=== PATIENT | female | born 1995 | race Two or more races ===

== ENCOUNTER 2019-08-08 23:27 | Emergency (ER) | payer MEDICAID ==
[~2019-08-08] VITALS: Ht 152.4 cm; Wt 104.3 kg
--- NOTE | 2019-08-08 23:46 | NUR ---
BIBSELF FROM HOME WITH FAMILY. TO ER BED 9. AAOX4. NO RESP DISTRESS NOTED. BREATHING EVEN AND UNLABORED. AMBULATORY. C/O L CHECT PAIN RADIATING TO L ARM AND L JAW. PT ALSO COMPLAINTS OF L SIDED HEADACHE. PT IS REPORT @ 5/10 SHARP AND PRESSURE. REPORTS TAKING 2 TYLENOL WHICH HELPED WITH THE PAIN AND IS NOT BAD WHEN IT STARTED @ 7PM. PT ALSO REPORTS THAT SHE FELT SOB AND NUMBNESS ON THE LEFT FACE WHICH IS NOT PRESENT UPON ASSESSMENT. EKG DONE BY EMT AT BEDSIDE. AWAITING MD FOR EVAL.
--- NOTE | 2019-08-08 23:59 | NUR ---
AT BEDSIDE FOR EVAL
[2019-08-09] MEDS ORDERED: NITROGLYCERIN PACKET 1 GM PACKET ONE (00:22)
[2019-08-09] MEDS ORDERED: ASPIRIN 81 MG TAB.CHEW ONE (00:23)
[2019-08-09 00:25] LABS: BASOPHILS # (AUTO) 0.1 /CMM (0.0-0.2); BASOPHILS % (AUTO) 0.7 % (0.0-2.0); EOSINOPHILS % (AUTO) 1.3 % (0.0-6.0); HEMATOCRIT 41 % (33-45); HEMOGLOBIN 13.4 g/dL (11.5-14.8); LYMPHOCYTES # (AUTO) 3.5 /CMM (0.8-4.8); LYMPHOCYTES % (AUTO) 26.7 % (20.0-44.0); MEAN CORPUSCULAR HGB CONC 33 g/dl (31.0-36.0); MEAN CORPUSCULAR VOLUME 80 fL (82-100); MONOCYTES # (AUTO) 0.7 /CMM (0.1-1.30); MONOCYTES % (AUTO) 5.6 % (2.0-12.0); NEUTROPHILS # (AUTO) 8.6 /CMM (1.8-8.9); NEUTROPHILS % (AUTO) 65.7 % (43.0-81.0); PLATELET COUNT (AUTO) 401 /CMM (150-450); RED BLOOD CELL COUNT(AUTO) 5.07 MIL/uL (4.0-5.2); WHITE BLOOD COUNT (AUTO) 13.1 K/uL (4.3-11.0)
[2019-08-09] MEDS ORDERED: NITROGLYCERIN PACKET 1 GM PACKET TD ONE (00:30)
[2019-08-09] MEDS ORDERED: ASPIRIN 81 MG TAB.CHEW PO ONE (00:30)
[2019-08-09 00:32] LABS: CALCIUM, SERUM 9.5 mg/dL (8.5-10.1); CARBON DIOXIDE 31 mmol/L (21-32); CHLORIDE 102 mmol/L (98-107); GLUCOSE 98 mg/dL (74-106); POTASSIUM 4.2 mmol/L (3.5-5.1); SODIUM SERUM 138 mmol/L (136-145); UREA NITROGEN, BLOOD 14 mg/dL (7-18)
[2019-08-09 00:44] LABS: ALANINE AMINOTRANSFERASE 18 U/L (12-78); ALBUMIN 3.5 g/dL (3.4-5.0); ALKALINE PHOSPHATASE 125 U/L (46-116); ASPARTATE AMINOTRANSFERASE 10 U/L (15-37); B-TYPE NATRIURETIC PEPTIDE 30 PG/ML (0-125); BILIRUBIN,DIRECT 0.1 mg/dL (0.0-0.2); BILIRUBIN,TOTAL 0.1 mg/dL (0.2-1.0); TOTAL PROTEIN, SERUM 7.8 g/dL (6.4-8.2)
[2019-08-09] MEDS ORDERED: ACETAMINOPHEN ES 500 MG TABLET PO ONE (01:00)
[2019-08-09] MEDS ORDERED: ACETAMINOPHEN ES 500 MG TABLET ONE (01:08)
--- NOTE | 2019-08-09 01:21 | NUR ---
Patient discharged to home in stable condition. Written and verbal after care instructions given. Patient verbalizes understanding of instruction.IV removed. Catheter intact and site benign. Pressure and 4x4 applied to site. No bleeding noted. Pt ambulatory with a steady gait
[2019-08-09 01:22] VITALS: BP 121/69
== END 2019-08-09 01:23 | disposition home or self-care (01) ==
LOC: ER 23:27
DX: R07.89 Other chest pain (principal); R06.00 Dyspnea, unspecified; R51 Headache; E66.9 Obesity, unspecified; Z68.41 Body mass index [BMI] 40.0-44.9, adult
CPT/HCPCS: 36415; 71045-TC; 80048-TC; 80076-TC; 83880; 84484-TC; 85025-TC

== ENCOUNTER 2020-01-23 20:14 | Emergency (ER) | payer MEDICAID ==
[~2020-01-23] VITALS: Ht 165.1 cm; Wt 110.7 kg
[2020-01-23 20:14] VITALS: BP 135/81
== END 2020-01-23 20:51 | disposition home or self-care (01) ==
LOC: ER 20:17
DX: H66.92 Otitis media, unspecified, left ear (principal)